=== PATIENT | female | born 1985 | race Caucasian/White ===

== ENCOUNTER 2017-04-10 17:23 | Emergency (ER) | payer OTHER ==
[2017-04-10 17:39] VITALS: TEMP 98
[2017-04-10] MEDS ORDERED: DIAZEPAM 5 MG TAB PO STA (17:58)
[2017-04-10] MEDS ORDERED: KETOROLAC 60 MG/2 ML VIAL IM STA (17:58)
--- NOTE | 2017-04-10 18:04 | ED ---
General Adult HPI - General Chief complaint: Neck Pain/Injury Stated complaint: Neck Pain Time Seen by Provider: 04/10/17 17:43 Source: patient, RN notes reviewed Mode of arrival: ambulatory Limitations: no limitations - History of Present Illness Initial comments: Patient 32-year-old female who presents emergency room today with chief complaint of pain to her neck bilaterally. She states pain is gone multiple times over the last month. States it started again 4 days ago. She states she woke up in the morning. She does admit that it's worse with movements of rotation to the left and right. Denies any specific injury or trauma. She states she's tried ibuprofen with little relief the symptoms. She states she feels that the pressures on the inside. States does not seem to be tender to palpation. She states she has gone to chiropractor this is not offered an relief. Patient does note some numbness tingling sensation at times. She states that currently not expressing any symptoms going down the arms. Patient denies any recent fever, chills, shortness of breath, chest pain, back pain, abdominal pain, nausea or vomiting, dysuria or hematuria, constipation or diarrhea, visual changes, or any other complaints. - Related Data Home Medications Medication Instructions Recorded Confirmed ALPRAZolam [Xanax] 0.25 mg PO DAILY PRN 11/02/15 11/02/15 Fenofibrate Nanocrystallized 145 mg PO HS 11/02/15 11/04/15 [Tricor] PARoxetine [Paxil] 20 mg PO DAILY 11/02/15 11/02/15 Previous Rx's Medication Instructions Recorded Acetaminophen-Codeine 300-30mg 1 - 2 tab PO Q4H PRN #30 tablet 11/04/15 [Tylenol #3] Ibuprofen [Motrin] 600 mg PO Q6HR PRN #40 tab 11/04/15 Cyclobenzaprine [Flexeril] 10 mg PO TID #20 tab 04/10/17 Hydrocodone/Acetaminophen [[place] 1 each PO Q6HR PRN #20 tab 04/10/17 5-325] Ibuprofen [Motrin] 800 mg PO Q6HR #30 tab 04/10/17 Allergies Allergy/AdvReac Type Severity Reaction Status Date / Time erythromycin base Allergy Rash/Hives Verified 11/02/15 16:01 Review of Systems ROS Statement: Those systems with pertinent positive or pertinent negative responses have been documented in the HPI. ROS Other: All systems not noted in ROS Statement are negative. Past Medical History Past Medical History: Hyperlipidemia History of Any Multi-Drug Resistant Organisms: None Reported Past Surgical History: Bariatric Surgery Additional Past Surgical History / Comment(s): LAP BAND 2007 Past Anesthesia/Blood Transfusion Reactions: No Reported Reaction Past Psychological History: Anxiety, Depression Smoking Status: Current every day smoker Past Alcohol Use History: None Reported Past Drug Use History: None Reported - Past Family History Mother Family Medical History: No Reported History General Exam - General Exam Comments Initial Comments: General: The patient is awake and alert, in no distress, and does not appear acutely ill. Eye: Pupils are equal, round and reactive to light, extra-ocular movements are intact. No nystagmus. There is normal conjunctiva bilaterally. No signs of icterus. Ears, nose, mouth and throat: There are moist mucous membranes and no oral lesions. Neck: The neck is supple, there is no tenderness or JVD. Cardiovascular: There is a regular rate and rhythm. No murmur, rub or gallop is appreciated. Respiratory: Lungs are clear to auscultation, respirations are non-labored, breath sounds are equal. No wheezes, stridor, rales, or rhonchi. Musculoskeletal: patient shows limited range of motion of her neck with rotation to the left and right due to pain. Patient has no tenderness in the midline of the cervical, thoracic or lumbar spine. No step-offs or deformities. Strength 5/5. Sensation intact. Pulses equal bilaterally 2+. Neurological: A&O x 3. CN II-XII intact, There are no obvious motor or sensory deficits. Coordination appears grossly intact. Speech is normal. Skin: Skin is warm and dry and no rashes or lesions are noted. Psychiatric: Cooperative, appropriate mood & affect, normal judgment. Limitations: no limitations Course Vital Signs 04/10/17 04/10/17 04/10/17 17:36 17:51 18:59 Temperature 98.0 F Pulse Rate 129 H 115 H 106 H Respiratory 20 22 18 Rate Blood Pressure 190/114 192/101 140/97 O2 Sat by Pulse 100 98 98 Oximetry Medical Decision Making - Medical Decision Making Case discussed in detail with attending physician Dr. Hobson. CT reviewed and negative. Patient reexamined at this time showing improvement after Toradol and Valium here in emergency room. Patient will be continued on anti- inflammatories and muscle relaxers also given a short prescription of [place]. Advised that these may make her drowsy. Advised to follow-up the family doctor with her scheduled appointment in 2 days. Advised return if any symptoms increase or worsen. Disposition Clinical Impression: Cervical strain, acute Disposition: HOME SELF-CARE Condition: Good Instructions: Cervical Strain (ED) Additional Instructions: Please use medication as discussed. Please follow-up with family doctor in the next 2 days of symptoms have not improved. Please return to emergency room if the symptoms increase or worsen or for any other concerns. Prescriptions: Cyclobenzaprine [Flexeril] 10 mg PO TID #20 tab Hydrocodone/Acetaminophen [[place] 5-325] 1 each PO Q6HR PRN #20 tab PRN Reason: Pain Ibuprofen [Motrin] 800 mg PO Q6HR #30 tab Referrals: Jovany Heard MD [Primary Care Provider] - 1-2 days Time of Disposition: 19:07
--- NOTE | 2017-04-10 18:36 | CT ---
EXAMINATION TYPE: CT cervical spine wo con DATE OF EXAM: 04/10/2017 COMPARISON: NONE HISTORY: Neck pain, no injury CT DLP: 535.3 mGycm Automated exposure control for dose reduction was used. TECHNIQUE: CT scan of the cervical spine is obtained without contrast, axial images are obtained, sa gittal and coronal reformatted images are also reviewed. FINDINGS: Cervical vertebra have normal spacing and alignment. Posterior elements are intact. Facet j oints appear normal. The skull base appears intact. I see no bony destructive process. Prevertebral s oft tissues appear normal. IMPRESSION: Negative CT scan of the cervical spine.
[2017-04-10 18:59] VITALS: BP 140/97; PULSE 106; RESP 18
== END 2017-04-10 19:13 | disposition home or self-care (01) ==
LOC: EC 17:23
DX: S16.1XXA Strain of muscle, fascia and tendon at neck level, initial encounter (principal); E78.5 Hyperlipidemia, unspecified; F41.9 Anxiety disorder, unspecified; F32.9 Major depressive disorder, single episode, unspecified; F17.200 Nicotine dependence, unspecified, uncomplicated; Z79.899 Other long term (current) drug therapy; Z88.1 Allergy status to other antibiotic agents
CPT/HCPCS: 72125; 99283; 96372; J1885

== ENCOUNTER → 2019-02-06 | Outpatient (CLI) | payer SELFPAY ==
--- NOTE | 2019-02-07 10:03 | US ---
EXAMINATION TYPE: US thyroid st tissue head/neck DATE OF EXAM: 02/06/2019 COMPARISON: US CLINICAL HISTORY: E21.3 Hyperparathyroidism, unspecified. Hyperparathyroidism. Patient is on thyroid medication. GLAND SIZE: Right Lobe: 5.3 x 2.2 x 2.0 cm Overall Parenchyma: heterogenous Left Lobe: 4.9 x 1.9 x 1.8 cm Overall Parenchyma: heterogeneous Isthmus Thickness: 0.48 cm NODULES RIGHT: # of nodules measured on right: 0 LEFT: # of nodules measured on left: 0 ISTHMUS: # of nodules measured in the isthmus: 0 No distinct nodules visualized due to heterogeneous tissue. Bilateral neck scanned. Hypoechoic area with hyperechoic center and vascularity seen lateral to right thyroid lobe measurin.0 x 1.0 x 0.6 cm. Hypoechoic area with hyperechoic center and vascularity seen lateral to left thyroid lobe measurin.9 x 0.8 x 0.5 cm. IMPRESSION: 1. Heterogenous thyroid lobes without discrete solid or cystic nodules. 2. Scattered lymph nodes left neck.
== END | disposition home or self-care (01) ==
LOC: RADUSWWP 16:52
PROVIDERS: ATTEND Family Medicine
DX: E07.89 Other specified disorders of thyroid (principal); R22.1 Localized swelling, mass and lump, neck
CPT/HCPCS: 76536

== ENCOUNTER → 2019-06-20 | Outpatient (CLI) | payer BC ==
--- NOTE | 2019-06-20 12:38 | XR ---
EXAMINATION TYPE: XR knee complete bilateral DATE OF EXAM: 06/20/2019 COMPARISON: None HISTORY: Knee pain TECHNIQUE: Three-view bilateral knees FINDINGS: Joint spaces are preserved. No joint effusions are evident. No acute fractures or dislocati ons are evident. IMPRESSION: 1. Normal bilateral knees
--- NOTE | 2019-06-20 12:39 | XR ---
EXAMINATION TYPE: XR ankle complete bilateral DATE OF EXAM: 06/20/2019 COMPARISON: None HISTORY: Pain worse when climbing stairs TECHNIQUE: Three-view bilateral ankles FINDINGS: Ankle mortise is intact bilaterally. No acute fractures or dislocations are evident. Soft t issues are normal. IMPRESSION: 1. Normal bilateral ankles
== END | disposition home or self-care (01) ==
LOC: RADXRMAIN 11:29
PROVIDERS: ATTEND Pediatrics
DX: M25.562 Pain in left knee (principal); M25.561 Pain in right knee; M25.572 Pain in left ankle and joints of left foot; M25.571 Pain in right ankle and joints of right foot

== ENCOUNTER → 2020-02-10 | Outpatient (CLI) | payer BC ==
--- NOTE | 2020-02-10 12:53 | MR ---
EXAMINATION TYPE: MR sacroiliac joints wo con DATE OF EXAM: 02/10/2020 COMPARISON: None HISTORY: Sacroiliitis Standard multiplanar, multisequence MRI departmental protocol Multiplanar, multisequence images of the SI joints were acquired. FINDINGS: SI joints are symmetric. No evidence of erosive changes. STIR coronal imaging demonstrates bilateral increased signal greater on the left involving the sacrum suggestive of mild active sacroiliitis. Sacral foramen appear to be patent bilaterally. Images of the lower lumbar spine demonstrate minimal disc bulging L4-5 and L5-S1. Incidental note is made of a nabothian cysts. Bilateral ovarian follicle s are noted. Facet arthropathy involving the lower lumbar spine. IMPRESSION: Correlate for mild bilateral asymmetric sacroiliitis greater on the left.
== END | disposition home or self-care (01) ==
LOC: RADMRIMAIN 11:49
PROVIDERS: ATTEND Internal Medicine Rheumatology
DX: M46.1 Sacroiliitis, not elsewhere classified (principal)
CPT/HCPCS: 72195